=== PATIENT | male | born 1985 | race Caucasian/White ===

== ENCOUNTER 2016-08-26 20:18 | Inpatient (IN) | payer OTHER ==
[~2016-08-26] VITALS: Ht 188 cm; Wt 129.3 kg
[2016-08-26] MEDS: LACTATED RINGER'S 1000 ML INJ 1,000 ML IV SCH ×2 (02:51→20:44)
[~2016-08-26 20:18] MED LIST: LACTATED RINGER'S 1000 ML INJ 1,000 ML IV ONE; NORMOSOL R INJ 1,000 ML IV ONE; ONDANSETRON HCL 4 MG/2 ML VIAL IV PUSH ONE; PHENYLEPH/NS 1000 MCG/10 ML SYR IV ONE; PROPOFOL 200 MG/20 ML AMP IV ONE; ePHEDrine/NS 25 MG/5 ML SYR IV ONE
[2016-08-26] MEDS ORDERED: HYDROmorphone HCL PF 1 MG/ML VIAL ONE ×2 (20:26→20:35)
[2016-08-26] MEDS ORDERED: ONDANSETRON HCL 4 MG/2 ML VIAL ONE (20:34)
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
[2016-08-26] MEDS ORDERED: CHLORHEXIDINE GLUCONATE 2 % 1 PACK (2 CLOTHS) TOP PRN (20:45)
[2016-08-26] MEDS ORDERED: MISCELLANEOUS NURSING INFORMATION XX SCH (20:45)
[2016-08-26] MEDS ORDERED: NALOXONE HCL 0.4 MG/ML AMP IV PRN (20:45)
[2016-08-26] MEDS ORDERED: HYDROmorphone HCL PCA 6 MG/30 ML IV SCH (20:45)
[2016-08-26] MEDS ORDERED: diphenhydrAMINE HCL 50 MG/ML VIAL IV PRN (20:45)
[2016-08-26 20:54] VITALS: O2SAT 98
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
[2016-08-26] MEDS ORDERED: PANTOPRAZOLE SODIUM 40 MG VIAL IVP SCH (21:00)
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
[2016-08-26 21:03] LABS: I-STAT POTASSIUM 3.9 MMOL/L (3.5-4.9)
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
[2016-08-26 21:07] LABS: BASOPHIL # 0.1 TH/MM3 (0-0.2); BASOPHIL % 0.6 % (0.0-2.0); EOSINOPHIL # 0.8 TH/MM3 (0-0.4); EOSINOPHIL % 6.2 % (0.0-4.0); HEMATOCRIT 43.4 % (39.0-51.0); HEMO FLAGS DIFF FINAL; LYMPH % 37.6 % (9.0-44.0); LYMPHOCYTE # 4.8 TH/MM3 (1.0-4.8); MEAN CELL VOLUME 82.8 FL (80.0-100.0); MEAN CORPUSCULAR HEMOGLOBIN 28.4 PG (27.0-34.0); MEAN CORPUSCULAR HGB CONC 34.4 % (32.0-36.0); MONO % 8.3 % (0.0-8.0); NEUT % 47.3 % (16.0-70.0); PLATELET COUNT 251 TH/MM3 (150-450); RED BLOOD COUNT 5.25 MIL/MM3 (4.50-5.90); RED CELL DISTRIBUTION WIDTH 13.2 % (11.6-17.2); WHITE BLOOD COUNT 12.8 TH/MM3 (4.0-11.0)
[2016-08-26 21:13] VITALS: PULSE 83
[2016-08-26] MEDS ORDERED: IOHEXOL 350 MG/ML 10 ML VIAL (for RAD DIAG) IV ONE (21:17)
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
[2016-08-26 21:22] LABS: APTT (PATIENT) 20.3 SEC (24.3-30.1); PROTHROMBIN TIME - PATIENT 11.4 SEC (9.8-11.6)
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
[2016-08-26] MEDS ORDERED: MIDAZOLAM HCL 2 MG/2 ML VIAL ONE (21:51)
[2016-08-26] MEDS ORDERED: HYDROmorphone HCL PF 2 MG/ML VIAL ONE (21:56)
[2016-08-26] MEDS: PCA - TOTAL MG DILAUDID DELIVERED PER SHIFT OTHER SCH (22:00)
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
[2016-08-26] MEDS ORDERED: ceFAZolin INJ 1,000 MG VIAL IV ONE (22:17)
[2016-08-26] MEDS ORDERED: GENTAMICIN SULFATE 80 MG/2 ML VIAL IV ONE (22:22)
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
[2016-08-26] MEDS ORDERED: Post-op Orders (for Pharmacy) MISC XX ONE (23:30)
[2016-08-26] MEDS ORDERED: SODIUM CHLORIDE 0.9% FLUSH 5 ML FLUSH IVF PRN (23:30)
[2016-08-26] MEDS ORDERED: ACETAMINOPHEN/HYDROcodone 325 MG/10 MG TAB PO PRN (23:30)
[2016-08-26] MEDS ORDERED: HYDROmorphone HCL PF 1 MG/ML VIAL IV PUSH PRN (23:30)
--- NOTE | 2016-08-26 23:36 | PD.OP ---
cc: Yong Cuevas MD Operative Report Date of Surgery: Aug 26, 2016 Preoperative Diagnosis: Open left distal femur fracture, open left tibia shaft fracture, open left ankle laceration Postoperative Diagnosis: Procedure: Irrigation and debridement of open left distal femur fracture, irrigation debridement of open left tibial shaft fracture, closed reduction with manipulation left distal femur fracture, closed reduction with manipulation of left tibia shaft fracture, application wound VAC dressing Surgeon: Yong Cuevas Signal Worker(s): Robbin Blackwood PA-C The surgical procedure was assisted by my physician home based assistant. My P.A. presence was necessary throughout this case for the manipulation and positioning of the surgical extremity. My P.A. was assisting me throughout the duration of this procedure. The skill set of a physician home based assistant was medically necessary to complete this procedure. During the surgical case the surgical scheduler was working at the back table and the physician home based assistant was directly assisting me. Operation and Findings: This patient sustained an injury resulting in comminuted open fractures of [ left distal femur and left tibial shaft]. Patient was seen and evaluated preoperatively and found to have too much swelling and soft tissue injury to proceed with open reduction internal fixation. Risk and benefits of surgery were discussed in depth with patient and informed consent was confirmed. Surgical site was marked. Patient was brought to operating room and placed on the OR table. Patient was given IV sedation and GETA. Patient received IV antibiotics and timeout procedure was performed. Operative leg was prepped with alcohol followed by Hibiclens and draped in the usual sterile fashion. Procedure began with irrigation and debridement of the distal femur fracture. The traumatic laceration was opened proximally and distally. There was some visible gross contamination including grass. All foreign material was carefully removed and excised. Skin subcutaneous tissue fascia and bone were sharply debrided. Multiple bone fragments were excised. Bone was cleaned with curettes. Bone was now thoroughly irrigated with pulsatile lavage. At this point wound appeared to be very clean with no further visible gross contamination. Next attention was turned to the tibia. The traumatic laceration was extended proximally and distally. Subcutaneous tissue dissected with Bovie. Multiple bone fragments were excised. Skin subcutaneous tissue and fascia were sharply debrided. Curettes were used to debride bone. Pulsatile lavage was used to thoroughly irrigate soft tissue and bone. There was also a lateral laceration of the fibula. This was thoroughly debrided sharply with scalpel. Next attention was turned to external fixation. Two small incisions were made along the anterior femur, proximal tibia, and distal tibia. Soft tissue was dissected bluntly. Cannulas were placed down to the cortex of bone. Pin sites were predrilled. Synthes HERNANDEZ-coated pins were placed into the femur, proximal tibia, and distal tibia. Fluoroscopy was used to confirm appropriate pin placement. An external fixator construct was now created with clamps and bars. Next attention was turned to reduction of the tibial shaft.. Traction was applied. Fracture was manipulated. Good alignment of the fracture was obtained. Fluoroscopy was used to confirm appropriate alignment of fracture. The external fixator was now tightened to hold reduction. Next attention was turned to the distal femur. Traction was applied. The distal femur was grossly realigned. The extra fixator was now tightened to hold reduction. There was severe comminution of the articular surface and distal femur metaphysis. Next was turned to wound closure. The distal femur laceration was closed with 3 -0 PDS and 3-0 nylon. The laceration of the tibia was not closable. Patient will likely need a free tissue transfer to cover this wound. A wound VAC dressing was cut to fit the wound. VAC dressing was sealed appropriately. Sterile dressings were applied. Patient was awakened and transferred to recovery room in stable condition. The soft tissue was reevaluated. Patient did have swelling around the knee and calf but compartments were soft and compressible with no signs of compartment syndrome. Yong Cuevas MD Aug 26, 2016 23:36
[2016-08-27] VITALS (16 sets, daily range): BP systolic 91–123; BP diastolic 51–66; PULSE 97–130; RESP 16–23; TEMP 96–100.3; O2SAT 32–100
[2016-08-27] MEDS ORDERED: DO NOT ADM ANY ANTICOAGULANT DRUGS PRN
[2016-08-27] MEDS ORDERED: fentaNYL CITRATE 250 MCG/5 ML AMP ONE (00:09)
--- NOTE | 2016-08-27 00:11 | RADRPT ---
EXAM DATE/TIME: 08/26/2016 23:12 [facility] COMPARISON: No previous studies available for comparison. INDICATIONS : Ex-fix lt femur. MEDICAL HISTORY : None. SURGICAL HISTORY : None. ENCOUNTER: Subsequent ACUITY: 1 day PAIN SCORE: Non-responsive. LOCATION: Left Femur FINDINGS: Intraoperative frontal view of the distal left femur demonstrates an extensively comminuted fracture through the distal femoral metadiaphysis with intra-articular extension and distraction of the femora l condyles. CONCLUSION: Extensively comminuted fracture through the distal femoral metadiaphysis with intra- articular ex tension and regional air. Rosas Altamirano MD on August 27, 2016 at 0:08 Board Certified Radiologist. This report was verified electronically.
--- NOTE | 2016-08-27 00:14 | RADRPT ---
EXAM DATE/TIME: 08/26/2016 23:12 [facility] COMPARISON: No previous studies available for comparison. INDICATIONS : Ex-fix lt tib/fib. MEDICAL HISTORY : None. SURGICAL HISTORY : None. ENCOUNTER: Subsequent ACUITY: 1 day PAIN SCORE: Non-responsive. LOCATION: Left Tib/Fib FINDINGS: Single frontal view of the tibia and fibula demonstrates diaphyseal fractures through both bones. Ove rlying external fixator positioned over the distal tibia. Inferiorly displaced bony fragment off the tibial fracture. CONCLUSION: 1. Comminuted fracture through the distal tibia with a large, inferiorly displaced fracture fragment. 2. Mildly comminuted fracture through the distal fibula. Rosas Altamirano MD on August 27, 2016 at 0:10 Board Certified Radiologist. This report was verified electronically.
[2016-08-27] MEDS ORDERED: MORPHINE SULFATE 4 MG/ML INJ ONE (02:13)
[2016-08-27] MEDS: ONDANSETRON HCL 4 MG/2 ML VIAL IV PRN ×3 (03:28→20:17)
[2016-08-27] MEDS: CHLORHEXIDINE GLUCONATE 2 % 1 PACK (2 CLOTHS) TOP SCH (03:28)
[2016-08-27] MEDS: LACTATED RINGER'S 1000 ML INJ 1,000 ML IV SCH ×4 (03:28→20:44)
[2016-08-27] MEDS: ceFAZolin 2 GM PREMIX 50 ML IV SCH ×3 (05:17→21:39)
[2016-08-27 05:24] LABS: AUTOMATED NEUTROPHIL # 20.8 TH/MM3 (1.8-7.7); BASOPHIL % 0.1 % (0.0-2.0); EOSINOPHIL % 0.1 % (0.0-4.0); HEMATOCRIT 32.1 % (39.0-51.0); LYMPH % 5.4 % (9.0-44.0); LYMPHOCYTE # 1.3 TH/MM3 (1.0-4.8); MEAN CELL VOLUME 84.4 FL (80.0-100.0); MEAN CORPUSCULAR HGB CONC 33.1 % (32.0-36.0); MONO % 9.2 % (0.0-8.0); NEUT % 85.2 % (16.0-70.0); PLATELET COUNT 262 TH/MM3 (150-450); RED CELL DISTRIBUTION WIDTH 12.7 % (11.6-17.2); WHITE BLOOD COUNT 24.4 TH/MM3 (4.0-11.0)
[2016-08-27 05:25] LABS: HEMO FLAGS AUTO DIFF
[2016-08-27 05:50] LABS: BICARBONATE 23.6 MEQ/L (21.0-32.0); POTASSIUM 5.6 MEQ/L (3.5-5.1)
[2016-08-27] MEDS: GENTAMICIN 80 MG PREMIX 100 ML IV SCH ×3 (05:59→21:39)
[2016-08-27] MEDS: KETOROLAC TROMETHAMINE 30 MG/ML (IVP) VIAL IVP SCH ×3 (06:00→22:00)
[2016-08-27] MEDS ORDERED: LACTATED RINGER'S 1000 ML INJ 1,000 ML IV ONE (06:00)
[2016-08-27] MEDS: PCA - TOTAL MG DILAUDID DELIVERED PER SHIFT OTHER SCH ×3 (06:00→21:39)
[2016-08-27 06:03] LABS: CALCIUM-PROTEIN CORRECTED 7.8 MG/DL (8.5-10.1)
--- NOTE | 2016-08-27 07:27 | PD.ORT.PN ---
Subjective Subjective Remarks POD 1 s/p I&D with application of exfix and wound vac left femur and tibia -doing well. pain controlled. resting comfortably Objective Vitals Vital Signs Date Time Temp Pulse Resp B/P Pulse Ox O2 Delivery O2 Flow Rate FiO2 08/27/16 06:00 109 08/27/16 06:00 23 08/27/16 04:00 98.9 117 17 102/62 94 08/27/16 04:00 117 08/27/16 02:30 97 Nasal Cannula 2.00 08/27/16 02:30 118 08/27/16 02:30 98.6 125 23 116/66 96 08/27/16 02:20 112 14 102/52 98 Nasal Cannula 2 08/27/16 02:00 108 14 98/58 100 Nasal Cannula 2 08/27/16 01:45 120 12 98/55 97 Nasal Cannula 2 08/27/16 01:30 112 16 102/60 68 Nasal Cannula 2 08/27/16 01:15 108 14 98/58 100 Nasal Cannula 2 08/27/16 01:00 109 11 101/60 97 Nasal Cannula 2 08/27/16 00:45 100 14 110/62 97 Nasal Cannula 2 08/27/16 00:30 100 12 98/58 97 Nasal Cannula 2 08/27/16 00:15 99.1 110 16 111/56 100 Nasal Cannula 3 08/26/16 21:45 94 14 127/62 95 08/26/16 21:30 92 17 138/68 96 08/26/16 21:17 82 21 142/79 99 08/26/16 21:13 83 08/26/16 21:13 98.6 80 18 142/79 99 08/26/16 20:54 98 3.00 08/26/16 20:54 98 3.00 I/O 08/26/16 08/26/16 08/26/16 08/27/16 08/27/16 08/27/16 07:00 15:00 23:00 07:00 15:00 23:00 Intake Total 3007 ml Output Total 1250 ml Balance 1757 ml Intake IV Total 307 ml Other 2700 ml Output Urine Total 950 ml Drainage Total 300 ml Result Diagram: 08/27/16 0505 08/27/16 0505 Other Results Laboratory Tests Test 08/26/16 20:26 Prothrombin Time 11.4 SEC (9.8-11.6) Prothromb Time International 1.0 RATIO Ratio Imaging Last 24 hours Impressions Pelvis X-Ray 08/26/162023 Signed Impressions: Service Date/Time: , August 26, 2016 20:11 - CONCLUSION: The bony pelvic ring is grossly intact. Samm Mcwilliams MD Chest X-Ray 08/26/162023 Signed Impressions: Service Date/Time: , August 26, 2016 20:11 - CONCLUSION: The lungs are clear. Samm Mcwilliams MD Chest CT 08/26/162023 Signed Impressions: Service Date/Time: , August 26, 2016 20:53 - CONCLUSION: Negative trauma CT thorax. Samm Mcwilliams MD Abdomen/Pelvis CT 08/26/162023 Signed Impressions: Service Date/Time: , August 26, 2016 20:53 - CONCLUSION: Negative trauma CT abdomen/pelvis with contrast. Samm Mcwilliams MD Objective Remarks LLE: +exfix. pin sites clean. NVI. dressings clean. +vac. good seal. Assessment & Plan Assessment and Plan 1) Left Open Distal Femur Fx s/p I&D with exfix application - POD 1 2) Left Open Distal Tibial Shaft Fx - s/p I&D with exfix and wound vac application - POD 1 -regular diet -had discussion with patient regarding treatment. patient will require a free tissue flap to cover the defect over his tibia fracture. Unfortunately, we do not have the plastics service that is able to perform this procedure here at [facility]. He will need to be transferred to [facility] for care. his orthopedic injuries cannot be fixed until adequate skin coverage is achieved over the tibia. will plan for transfer to [facility] for Free tissue flap by Dr Toro and Ortho management by Dr Street. Plan for transfer this weekend. -maintain exfix and vac at all times -pin care BID -Robbin Eugene Aug 27, 2016 07:27
[2016-08-27 07:29] LABS: BANDS 15 % (0-6); NEUTROPHIL # MANUAL DIFF 20.5 TH/MM3 (1.8-7.7); POLYS (SEG NEUTROPHILS) 69 % (16-70); WBC DIFF SAMPLE 100
[2016-08-27 07:30] LABS: PLATELET ESTIMATE SMEAR NORMAL (NORMAL); PLATELET MORPHOLOGY NORMAL (NORMAL); SCAN/DIFF FINAL DIFF MANUAL
[2016-08-27] MEDS: DOCUSATE SODIUM 50 MG/SENNA 8.6 MG TAB PO SCH ×2 (08:16→21:00)
[2016-08-27] MEDS: SODIUM CHLORIDE 0.9% FLUSH 5 ML FLUSH IVF SCH ×2 (08:17→21:00)
[2016-08-27] MEDS: SODIUM CHLORIDE 0.9% FLUSH 10 ML FLUSH IV FLUSH PRN (08:17)
[2016-08-27 09:13] LABS: HEMATOCRIT 30.3 % (39.0-51.0); REVIEW FLAG FINAL
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
[2016-08-27] MEDS: MAGNESIUM HYDROXIDE SUSP 30 ML CUP PO SCH (21:00)
--- NOTE | 2016-08-27 21:19 | RADRPT ---
EXAM DATE/TIME: 08/27/2016 20:44 [facility] COMPARISON: CHEST SINGLE AP, August 26, 2016, 20:11. INDICATIONS : Halicat. Shortness of breath. MEDICAL HISTORY : None. SURGICAL HISTORY : None. ENCOUNTER: Initial ACUITY: 1 day PAIN SCORE: Non-responsive. LOCATION: Bilateral chest FINDINGS: A single view of the chest demonstrates the lungs to be symmetrically aerated without evidence of mas s, infiltrate or effusion. The cardiomediastinal contours are unremarkable. Osseous structures are intact. CONCLUSION: No acute disease. Ivan Cota MD FACR on August 27, 2016 at 21:17 Board Certified Radiologist. This report was verified electronically.
[2016-08-27] MEDS: ENOXAPARIN SODIUM 30 MG/0.3 ML SYRINGE SQ SCH (22:00)
[2016-08-28] VITALS (18 sets, daily range): BP systolic 84–129; BP diastolic 41–60; PULSE 92–141; RESP 12–21; TEMP 99.2–101; O2SAT 97–100
[2016-08-28] MEDS: LACTATED RINGER'S 1000 ML INJ 1,000 ML IV SCH ×6 (00:28→23:50)
[2016-08-28] MEDS: CHLORHEXIDINE GLUCONATE 2 % 1 PACK (2 CLOTHS) TOP SCH (02:24)
[2016-08-28 04:25] LABS: AUTOMATED NEUTROPHIL # 8.9 TH/MM3 (1.8-7.7); BASOPHIL % 0.4 % (0.0-2.0); EOSINOPHIL # 0.1 TH/MM3 (0-0.4); EOSINOPHIL % 0.6 % (0.0-4.0); LYMPH % 12.6 % (9.0-44.0); LYMPHOCYTE # 1.5 TH/MM3 (1.0-4.8); MEAN CELL VOLUME 83.5 FL (80.0-100.0); MEAN CORPUSCULAR HEMOGLOBIN 28.9 PG (27.0-34.0); MEAN CORPUSCULAR HGB CONC 34.6 % (32.0-36.0); MONO % 10.1 % (0.0-8.0); NEUT % 76.3 % (16.0-70.0); PLATELET COUNT 150 TH/MM3 (150-450); RED BLOOD COUNT 2.38 MIL/MM3 (4.50-5.90); RED CELL DISTRIBUTION WIDTH 12.7 % (11.6-17.2); WHITE BLOOD COUNT 11.6 TH/MM3 (4.0-11.0)
[2016-08-28 04:32] LABS: APTT (PATIENT) 27.3 SEC (24.3-30.1); INTERNATIONAL NORMALIZED RATIO 1.1 RATIO; PROTHROMBIN TIME - PATIENT 11.7 SEC (9.8-11.6)
[2016-08-28 04:33] LABS: HEMO FLAGS DIFF FINAL
[2016-08-28 04:37] LABS: HEMATOCRIT 19.8 % (39.0-51.0)
[2016-08-28 04:42] LABS: BICARBONATE 28.7 MEQ/L (21.0-32.0); CALCIUM-PROTEIN CORRECTED 8.1 MG/DL (8.5-10.1); POTASSIUM 4.7 MEQ/L (3.5-5.1); TOTAL BILIRUBIN ADULT 0.5 MG/DL (0.2-1.0)
[2016-08-28] MEDS: GENTAMICIN 80 MG PREMIX 100 ML IV SCH ×3 (04:43→22:16)
[2016-08-28] MEDS: ceFAZolin 2 GM PREMIX 50 ML IV SCH ×3 (04:43→22:16)
[2016-08-28 04:56] LABS: CKMB 15.6 NG/ML (0.5-3.6)
[2016-08-28] MEDS: KETOROLAC TROMETHAMINE 30 MG/ML (IVP) VIAL IVP SCH (05:05)
--- NOTE | 2016-08-28 05:23 | PD.CONS ---
HPI Service Critical Care Medicine Consult Requested By Trauma Service Reason for Consult Hypoxemic Respiratory Failure Primary Care Physician Unknown History of Present Illness 31 y/o man became obtunded and hypoxemic on floor. Responded after 2nd dose of Narcan and was fully alert. Mild hypoxemia persisted without tachypnea. CXR clear. Cause of obtundation clearly narcotic from which he completely recovered. Residual hypoxemia from microatelectasis, PE, or possibly fat emboli syndrome. Patient continues to be breathing comfortably but O2 requirements are increased and sats 70s off O2. The patient's response to the second dose of narcan was profound and certainly implicates narcotic as the cause. Renal function is acutely impaired (and I doubt this is a pulmonary embolus). We will try to avoid a chest CTA while the renal function is recovering. CXR is clear. Fat emboli syndrome is a possible cause of ongoing mild hypoxemia but this is a little early in the time course and the orthopedic procedure performed is not prone to this complication. However, his agitation and confusion is typical of fat emboli though no obvious stigmata in axillary folds. Will reduce narcotic dose, observe pulse ox saturations, and follow renal function. Needless to say, he may require a V/Q scan or receive full anticoagulation by default )if not prohibited by other injuries. I'll discuss with Trauma Service. Past Family Social History Allergies: Coded Allergies: No Known Allergies (Unverified , 08/26/16) Physical Exam Vital Signs Vital Signs Date Time Temp Pulse Resp B/P Pulse Ox O2 Delivery O2 Flow Rate FiO2 08/28/16 04:00 101 08/28/16 04:00 100.6 101 15 114/54 100 08/28/16 02:00 108 08/28/16 00:00 100.5 109 16 98/50 100 08/28/16 00:00 109 08/27/16 22:00 119 08/27/16 21:30 111 08/27/16 21:30 100.3 114 16 95/51 100 08/27/16 21:02 100 Nasal Cannula 4.00 08/27/16 20:00 100 Nasal Cannula 4.00 08/27/16 19:55 100 3.00 08/27/16 19:55 100 Nasal Cannula 3.00 08/27/16 19:55 98.3 118 111/64 100 08/27/16 19:50 125 123/54 79 7/7/17 19:41 130 32 08/27/16 16:01 97.5 105 20 117/54 93 08/27/16 15:00 96 21 08/27/16 12:17 14 08/27/16 11:32 96.0 107 20 104/56 92 08/27/16 10:00 111 08/27/16 08:39 98 Nasal Cannula 2.00 08/27/16 08:00 97 08/27/16 08:00 98.2 104 16 91/53 96 08/27/16 07:00 100 Nasal Cannula 2.00 08/27/16 06:00 109 08/27/16 06:00 23 Physical Exam Gen: WD man. Head: Normal Pupils equal round reactive to light extraocular movements intact sclerae nonicteric conjunctiva is pink Neck: Airway widely patent. Lungs: Clear, no wheezes or crackles. Heart: NL S1S2, RRR, No JVD Abdomen: Benign Extremities: External fixateur left leg. Neuro: Confused, delirious. Moves all toes and fingers. Laboratory Laboratory Tests Test 08/27/16 08/28/16 08:59 03:29 Hemoglobin 10.2 6.9 Hematocrit 30.3 19.8 White Blood Count 11.6 Red Blood Count 2.38 Mean Corpuscular Volume 83.5 Mean Corpuscular Hemoglobin 28.9 Mean Corpuscular Hemoglobin 34.6 Concent Red Cell Distribution Width 12.7 Platelet Count 150 Mean Platelet Volume 9.8 Neutrophils (%) (Auto) 76.3 Lymphocytes (%) (Auto) 12.6 Monocytes (%) (Auto) 10.1 Eosinophils (%) (Auto) 0.6 Basophils (%) (Auto) 0.4 Neutrophils # (Auto) 8.9 Lymphocytes # (Auto) 1.5 Monocytes # (Auto) 1.2 Eosinophils # (Auto) 0.1 Basophils # (Auto) 0.0 CBC Comment DIFF FINAL Differential Comment Prothrombin Time 11.7 Prothromb Time International 1.1 Ratio Activated Partial 27.3 Thromboplast Time Sodium Level 137 Potassium Level 4.7 Chloride Level 102 Carbon Dioxide Level 28.7 Anion Gap 6 Blood Urea Nitrogen 34 Creatinine 1.87 Estimat Glomerular Filtration 42 Rate Random Glucose 114 Calcium Level 7.2 Protein Corrected Calcium 8.1 Total Bilirubin 0.5 Aspartate Amino Transf 77 (AST/SGOT) Alanine Aminotransferase 29 (ALT/SGPT) Alkaline Phosphatase 45 Total Creatine Kinase 2679 Creatine Kinase MB 15.6 Creatine Kinase MB % 0.6 Troponin I 0.46 Total Protein 5.5 Albumin 2.7 Result Diagram: 08/28/1632808/28/16328 Assessment and Plan Assessment and Plan Assessment: 1. Hypoxemic respiratory failure. 2. S/P debridement open left femur fracture and external fixation femur, tibia. 3. Encephalopathy. Plan: 1. NC O2. 2. Maintenance iv. 3. Hold narcotics. 4. Serial CKs. 5. Protonix. 6. Lovenox 40 daily Overall impression: Episode of obtundation appears related to narcotic. Clear CXR with hypoxemia raises concerns for PE or fat emboli. Reluctant to perform CTA chest with renal impairment. Consider V/Q scan; will discuss with trauma service pros and cons of full anticoagulation. If fat emboli, CXR will take several more days to appear granular. He remains critically ill with severe hypoxemic respiratory failure. Critical care 44 mins Jeff Valencia MD Aug 28, 2016 05:23
[2016-08-28] MEDS ORDERED: fentaNYL DRIP 250 ML IV SCH (06:30)
[2016-08-28] MEDS ORDERED: PROPOFOL 1000 MG/100 ML INJ 100 ML IV SCH (06:30)
[2016-08-28] MEDS ORDERED: ETOMIDATE 40 MG/20 ML VIAL IV PUSH ONE (06:30)
[2016-08-28] MEDS ORDERED: ROCURONIUM INJ 100 MG/10 ML VIAL IV ONE (06:30)
--- NOTE | 2016-08-28 06:55 | PD.PROCEDR ---
Procedure Note Procedure DATE: 08/28/2016 PROCEDURE: Orotracheal intubation INDICATION: Acute hypoxemic respiratory failure DETAILS OF PROCEDURE The patient was placed in optimal position and preoxygenated with 100% FiO2 via bag valve mask. At the start oxygen saturation was 100%. The patient was administered 25 g fentanyl IV and 40 mg etomidate IV and 50 mg rocuronium IV. I entered the oropharynx with a size 4 GVL glidescope blade and obtained a grade 3 view of the airway. On single attempt a size 8.0 cuffed endotracheal tube was passed through the vocal cords. Correct tube location was confirmed with end tidal CO2 detector and by auscultating over bilateral lung hightower. The endotracheal tube was secured with adhesive tape at a depth of 24 cm at the lips. The patient was connected to the ventilator. The patient tolerated the procedure well without any apparent complications. Oxygen saturations were maintained greater than 95% all times. STAT chest x-ray pending at time of dictation. Cristino Mcmanus MD Aug 28, 2016 06:55
[2016-08-28] MEDS ORDERED: MIDAZOLAM 100 MG/ML INJ 100 ML IV SCH (07:00)
[2016-08-28] MEDS ORDERED: MIDAZOLAM HCL 5 MG/ML VIAL (1 ML) ONE (07:13)
--- NOTE | 2016-08-28 07:13 | RADRPT ---
EXAM DATE/TIME: 08/28/2016 07:02 [facility] COMPARISON: No previous studies available for comparison. INDICATIONS : E-T tube placement. MEDICAL HISTORY : None. SURGICAL HISTORY : Left leg orthopedic surgery ENCOUNTER: Subsequent ACUITY: 3 days PAIN SCORE: Non-responsive. LOCATION: Bilateral chest FINDINGS: A single view of the chest demonstrates the lungs to be symmetrically aerated without evidence of mas s, infiltrate or effusion. The endotracheal tube has been placed just above the level of the clavicle . The cardiomediastinal contours are unremarkable. Osseous structures are intact. CONCLUSION: Normal examination status post intubation. Raad Asencio MD on August 28, 2016 at 7:12 Board Certified Radiologist. This report was verified electronically.
[2016-08-28] MEDS ORDERED: TERBUTALINE INJ 1 MG/ML AMP SQ PRN (07:30)
[2016-08-28] MEDS ORDERED: PHENYLEPHRINE INJ 160 MG in DEXTROSE 5% IN WATE 500 ML INJ 484 ML IV SCH ×2 (07:30)
[2016-08-28] MEDS: CHLORHEXIDINE 0.12% (ORAL KIT) 15 ML CUP MT SCH ×2 (08:00→20:00)
[2016-08-28 08:03] LABS: BLOOD GAS BASE EXCESS 2.2 mmol/L (-2-2); BLOOD GAS CARBOXYHEMOGLOBIN 1.3 % (0-4); BLOOD GAS HCO3 27 mmol/L (22-26); BLOOD GAS METHEMOGLOBIN 1.3 % (0-2); BLOOD GAS O2 HGB SATURATION 98 % (90-100); BLOOD GAS OXYGEN CONTENT 10.3 Vol % (12.0-20.0); BLOOD GAS PCO2 47 mmHg (38-42); BLOOD GAS PO2 463 mmHg (61-120); BLOOD GAS TOTAL HGB 6.6 G/DL (12.0-16.0); CRITICAL VALUE YES; DRAW SITE RT RADIAL; FIO2 100 %; NUMBER OF ARTERIAL PUNCTURES 1; OXYGEN DEVICE VENTILATOR; STAT NO; TEMP CORR TO 98.6; ULNAR PULSE PRESENT; VENT SETTINGS AC/16/600/PEEP5
[2016-08-28] MEDS: SODIUM CHLORIDE 0.9% FLUSH 5 ML FLUSH IVF SCH ×2 (09:00→20:11)
[2016-08-28] MEDS: DOCUSATE SODIUM 50 MG/SENNA 8.6 MG TAB PO SCH ×2 (09:00→20:10)
--- NOTE | 2016-08-28 09:21 | PD.ORT.PN ---
Subjective Subjective Remarks Patient had Helicat on the floor last night Transferred to [facility]. Responded to Narcan. Patient now in nuclear medicine and not on floor Objective Vitals Vital Signs Date Time Temp Pulse Resp B/P Pulse Ox O2 Delivery O2 Flow Rate FiO2 08/28/16 07:38 100 08/28/16 06:45 100 100 08/28/16 06:00 108 08/28/16 04:00 101 08/28/16 04:00 100.6 101 15 114/54 100 08/28/16 02:00 108 08/28/16 00:00 100.5 109 16 98/50 100 08/28/16 00:00 109 08/27/16 22:00 119 08/27/16 21:30 111 08/27/16 21:30 100.3 114 16 95/51 100 08/27/16 21:02 100 Nasal Cannula 4.00 08/27/16 20:00 100 Nasal Cannula 4.00 08/27/16 19:55 100 3.00 08/27/16 19:55 100 Nasal Cannula 3.00 08/27/16 19:55 98.3 118 111/64 100 08/27/16 19:50 125 123/54 79 08/27/16 19:41 130 32 08/27/16 16:01 97.5 105 20 117/54 93 08/27/16 15:00 96 21 08/27/16 12:17 14 08/27/16 11:32 96.0 107 20 104/56 92 08/27/16 10:00 111 I/O 08/27/16 08/27/16 08/27/16 08/28/16 08/28/16 08/28/16 07:00 15:00 23:00 07:00 15:00 23:00 Intake Total 3007 ml 100 ml 933 ml Output Total 1250 ml 300 ml 650 ml Balance 1757 ml 100 ml -300 ml 283 ml Intake Oral 100 ml 50 ml IV Total 307 ml 883 ml Other 2700 ml Output Urine Total 950 ml 300 ml 600 ml Drainage Total 300 ml 50 ml # Voids 0 # Bowel Movements 0 Result Diagram: 08/28/16 0329 08/28/16 0329 Other Results Laboratory Tests Test 08/28/16 03:29 Prothrombin Time 11.7 SEC (9.8-11.6) Prothromb Time International 1.1 RATIO Ratio Imaging Last 24 hours Impressions Pelvis X-Ray 08/26/162023 Signed Impressions: Service Date/Time: , August 26, 2016 20:11 - CONCLUSION: The bony pelvic ring is grossly intact. Samm Mcwilliams MD Chest X-Ray 08/26/162023 Signed Impressions: Service Date/Time: , August 26, 2016 20:11 - CONCLUSION: The lungs are clear. Samm Mcwilliams MD Chest CT 08/26/162023 Signed Impressions: Service Date/Time: , August 26, 2016 20:53 - CONCLUSION: Negative trauma CT thorax. Samm Mcwilliams MD Abdomen/Pelvis CT 08/26/162023 Signed Impressions: Service Date/Time: , August 26, 2016 20:53 - CONCLUSION: Negative trauma CT abdomen/pelvis with contrast. Samm Mcwilliams MD Assessment & Plan Assessment and Plan 1) Left Open Distal Femur Fx s/p I&D with exfix application - POD 2 2) Left Open Distal Tibial Shaft Fx - s/p I&D with exfix and wound vac application - POD 2 PLAN: -regular diet -had discussion with patient regarding treatment. patient will require a free tissue flap to cover the defect over his tibia fracture. Unfortunately, we do not have the plastics service that is able to perform this procedure here at [place]. He will need to be transferred to [facility] for care. his orthopedic injuries cannot be fixed until adequate skin coverage is achieved over the tibia. will plan for transfer to [facility] for Free tissue flap by Dr Toro and Ortho management by Dr Street. Plan for transfer this weekend. -maintain exfix and vac at all times -pin care BID -NWB Transfer likely on hold until medically stabilized. Hemoglobin 6.9. Patient may need transfusion at some point. Chirag Lynn MD Aug 28, 2016 09:21
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
--- NOTE | 2016-08-28 14:34 | ECHRPT ---
Indication: Evaluate RV and EF. CONCLUSIONS The left ventricular systolic function is normal with an estimated ejection fraction in the range of 55-60%. Wall thickness is measured at the upper limits of normal. The right ventricular systoilc function is mildly decreased. The right ventriclar size is upper limits of normal. There is moderate tricuspid regurgitation. The estimated pulmonary arterial pressure is 47 mmHg. There is a small pericardial effusion present. BP: / HR: 96 Rhythm: Sinus MEASUREMENTS (Male / Female) Normal Values Technical Quality:Good 2D ECHO LV Diastolic Diameter PLAX 5.0 cm 4.2 - 5.9 / 3.9 - 5.3 cm LV Systolic Diameter PLAX 3.8 cm IVS Diastolic Thickness 1.3 cm 0.6 - 1.0 / 0.6 - 0.9 cm LVPW Diastolic Thickness 1.3 cm 0.6 - 1.0 / 0.6 - 0.9 cm LV Relative Wall Thickness 0.5 RV Internal Dim ED PLAX 3.2 cm LVOT Diameter 2.4 cm M-MODE Aortic Root Diameter MM 3.3 cm LA Systolic Diameter MM 3.0 cm LA Ao Ratio MM 0.9 AV Cusp Separation MM 1.9 cm DOPPLER AV Peak Velocity 125.0 cm/s AV Peak Gradient 6.3 mmHg LVOT Peak Velocity 113.0 cm/s LVOT Peak Gradient 5.1 mmHg AV Area Cont Eq pk 4.1 cm Mitral E Point Velocity 65.2 cm/s Mitral A Point Velocity 68.1 cm/s Mitral E to A Ratio 1.0 LV E' Lateral Velocity 19.5 cm/s Mitral E to LV E' Lateral Ratio 3.3 LV E' Septal Velocity 14.9 cm/s Mitral E to LV E' Septal Ratio 4.4 TR Peak Velocity 304.0 cm/s TR Peak Gradient 37.0 mmHg PV Peak Velocity 132.0 cm/s PV Peak Gradient 7.0 mmHg FINDINGS LEFT VENTRICLE The left ventricular systolic function is normal with an estimated ejection fraction in the range of 55-60%. Wall thickness is measured at the upper limits of normal. RIGHT VENTRICLE The right ventricular systoilc function is mildly decreased. The right ventriclar size is upper limits of normal. LEFT ATRIUM The left atrial size is normal. RIGHT ATRIUM The right atrial size is normal. ATRIAL SEPTUM Normal atrial septal thickness without atrial level shunting by limited color doppler interrogation. AORTA The aortic root and proximal ascending aorta are normal in size on limited imaging. MITRAL VALVE Structurally normal mitral valve. No mitral valve stenosis or regurgitation. AORTIC VALVE Trileaflet aortic valve. No aortic valve stenosis or regurgitation. TRICUSPID VALVE There is moderate tricuspid regurgitation. The estimated pulmonary arterial pressure is 47 mmHg. PULMONARY VALVE The pulmonary valve is not well visualized. VESSELS The inferior vena cava is normal in size. PERICARDIUM There is a small pericardial effusion present. Raymundo Ramos MD (Electronically Signed) Final Date:28 August 2016 14:33
[2016-08-28] MEDS ORDERED: ACETAMINOPHEN 1000 MG/100 ML VIAL IV ONE (16:00)
[2016-08-28 16:12] LABS: BICARBONATE 28.4 MEQ/L (21.0-32.0); MAGNESIUM 1.8 MG/DL (1.5-2.5); POTASSIUM 4.7 MEQ/L (3.5-5.1)
[2016-08-28 16:26] LABS: HEMATOCRIT 23.4 % (39.0-51.0); MEAN CELL VOLUME 84.7 FL (80.0-100.0); MEAN CORPUSCULAR HEMOGLOBIN 28.8 PG (27.0-34.0); PLATELET COUNT 119 TH/MM3 (150-450); RED BLOOD COUNT 2.76 MIL/MM3 (4.50-5.90); RED CELL DISTRIBUTION WIDTH 12.8 % (11.6-17.2); REVIEW FLAG FINAL; WHITE BLOOD COUNT 9.7 TH/MM3 (4.0-11.0)
[2016-08-28] MEDS ORDERED: SODIUM PHOSPHATE INJ 15 MMOL in SODIUM CHLORIDE 0.9% INJ 150 ML IV ONE (17:00)
[2016-08-28] MEDS: MAGNESIUM SULFATE 1 GM PREMIX 100 ML IV SCH ×2 (17:37→18:22)
[2016-08-28] MEDS ORDERED: ACETAMINOPHEN/HYDROcodone 325 MG/5 MG TAB PO PRN (18:30)
[2016-08-28] MEDS: MAGNESIUM HYDROXIDE SUSP 30 ML CUP PO SCH (20:10)
[2016-08-28] MEDS: ENOXAPARIN SODIUM 30 MG/0.3 ML SYRINGE SQ SCH (22:16)
[2016-08-28] MEDS: ACETAMINOPHEN 1000 MG/100 ML VIAL IV PRN (23:50)
[2016-08-29] VITALS (14 sets, daily range): BP systolic 105–134; BP diastolic 51–63; PULSE 88–115; RESP 12–20; TEMP 98.4–101.1; O2SAT 99–100
[2016-08-29] MEDS: CHLORHEXIDINE GLUCONATE 2 % 1 PACK (2 CLOTHS) TOP SCH (04:00)
[2016-08-29 04:20] LABS: AUTOMATED NEUTROPHIL # 6.8 TH/MM3 (1.8-7.7); BASOPHIL % 0.2 % (0.0-2.0); EOSINOPHIL # 0.3 TH/MM3 (0-0.4); EOSINOPHIL % 3.7 % (0.0-4.0); MEAN CELL VOLUME 83.5 FL (80.0-100.0); MEAN CORPUSCULAR HEMOGLOBIN 28.7 PG (27.0-34.0); MEAN CORPUSCULAR HGB CONC 34.4 % (32.0-36.0); MONO % 11.7 % (0.0-8.0); NEUT % 73.4 % (16.0-70.0); PLATELET COUNT 96 TH/MM3 (150-450); RED BLOOD COUNT 2.29 MIL/MM3 (4.50-5.90); RED CELL DISTRIBUTION WIDTH 12.7 % (11.6-17.2); WHITE BLOOD COUNT 9.3 TH/MM3 (4.0-11.0)
[2016-08-29 04:24] LABS: HEMO FLAGS AUTO DIFF
[2016-08-29 04:27] LABS: HEMATOCRIT 19.1 % (39.0-51.0)
[2016-08-29] MEDS: LACTATED RINGER'S 1000 ML INJ 1,000 ML IV SCH ×2 (04:44→12:44)
[2016-08-29] MEDS: ceFAZolin 2 GM PREMIX 50 ML IV SCH ×3 (04:52→21:22)
[2016-08-29 04:59] LABS: ANION GAP 9 MEQ/L (5-15); AST (GOT) 80 U/L (15-37); BICARBONATE 28.4 MEQ/L (21.0-32.0); BLOOD UREA NITROGEN 14 MG/DL (7-18); CHLORIDE 100 MEQ/L (98-107); GLOMERULAR FILTRATION RATE 83 ML/MIN (>89); MAGNESIUM 2.3 MG/DL (1.5-2.5); POTASSIUM 4.1 MEQ/L (3.5-5.1); SODIUM (NA) 137 MEQ/L (136-145)
[2016-08-29 05:09] LABS: ALT (GPT) 25 U/L (12-78)
[2016-08-29 05:23] LABS: SCAN/DIFF AUTO DIFF CONFIRMED
[2016-08-29 05:26] LABS: ALKALINE PHOSPHATASE 47 U/L (45-117); CREATINE KINASE 2255 U/L (39-308); TOTAL BILIRUBIN ADULT 0.5 MG/DL (0.2-1.0)
[2016-08-29 05:52] LABS: CKMB 4.8 NG/ML (0.5-3.6)
[2016-08-29] MEDS ORDERED: FUROSEMIDE 20 MG/2 ML VIAL IV PUSH ONE (08:00)
[2016-08-29] MEDS: CHLORHEXIDINE 0.12% (ORAL KIT) 15 ML CUP MT SCH (08:00)
--- NOTE | 2016-08-29 08:05 | HHI.CCPN ---
Subjective Remarks/Hospital Course 31 y/o man became obtunded and hypoxemic on floor. Responded after 2nd dose of Narcan and was fully alert. Mild hypoxemia persisted without tachypnea. CXR clear. Cause of obtundation clearly narcotic from which he completely recovered. Residual hypoxemia from microatelectasis, PE, or possibly fat emboli syndrome. Patient continues to be breathing comfortably but O2 requirements are increased and sats 70s off O2. The patient's response to the second dose of narcan was profound and certainly implicates narcotic as the cause. Renal function is acutely impaired (and I doubt this is a pulmonary embolus). We will try to avoid a chest CTA while the renal function is recovering. CXR is clear. Fat emboli syndrome is a possible cause of ongoing mild hypoxemia but this is a little early in the time course and the orthopedic procedure performed is not prone to this complication. However, his agitation and confusion is typical of fat emboli though no obvious stigmata in axillary folds. Will reduce narcotic dose, observe pulse ox saturations, and follow renal function. Needless to say, he may require a V/Q scan or receive full anticoagulation by default )if not prohibited by other injuries. I'll discuss with Trauma Service. Subjective 08/29: Negative VQ scan yesterday. Likely fat embolism currently on 3 L nasal cannula. Awake and oriented to person only. CT head negative for acute intracranial findings. Objective Vital Signs Date Time Temp Pulse Resp B/P Pulse Ox O2 Delivery O2 Flow Rate FiO2 08/29/16 06:00 101 08/29/16 04:00 100.1 17 105/51 100 08/28/16 20:14 Nasal Cannula 3.00 08/28/16 12:45 35 Intake and Output 08/28/16 08/28/16 08/29/16 08:00 16:00 00:00 Intake Total 933 ml 762 ml 810 ml Output Total 650 ml 100 ml 1150 ml Balance 283 ml 662 ml -340 ml Result Diagram: 08/29/16 0336 08/29/16 0336 Imaging Last 72 hours Impressions Lung Scan-VQ Nuclear Medicine 08/28/16 0000 Signed Impressions: Service Date/Time: Sunday, August 28, 2016 08:57 - CONCLUSION: Normal examination. Raad Asencio MD Chest X-Ray 7/8/17 0000 Signed Impressions: Service Date/Time: Sunday, August 28, 2016 07:02 - CONCLUSION: Normal examination status post intubation. Raad Asencio MD Head CT 08/27/16 Signed Impressions: Service Date/Time: Saturday, August 27, 2016 20:28 - CONCLUSION: Negative for acute process. Ivan Cota MD FACR Chest X-Ray 08/27/16 Signed Impressions: Service Date/Time: Saturday, August 27, 2016 20:44 - CONCLUSION: No acute disease. Ivan Cota MD FACR Pelvis X-Ray 08/26/162023 Signed Impressions: Service Date/Time: August 20:11 - CONCLUSION: The bony pelvic ring is grossly intact. Samm Mcwilliams MD Chest X-Ray 08/26/162023 Signed Impressions: Service Date/Time: August 20:11 - CONCLUSION: The lungs are clear. Samm Mcwilliams MD Chest CT 08/26/162023 Signed Impressions: Service Date/Time: August 20:53 - CONCLUSION: Negative trauma CT thorax. Samm Mcwilliams MD Abdomen/Pelvis CT 08/26/162023 Signed Impressions: Service Date/Time: August 20:53 - CONCLUSION: Negative trauma CT abdomen/pelvis with contrast. Samm Mcwilliams MD Objective Remarks GENERAL: 31-year-old male, physically fit early resting in bed in mild delirium SKIN: Warm and dry. HEAD: Atraumatic. Normocephalic. EYES: Pupils equal and round about 2 mm bilaterally and reactive. No scleral icterus. No injection or drainage. ENT: No nasal bleeding or discharge. Mucous membranes pink and moist. Oral facet erythema NECK: Trachea midline. No JVD. CARDIOVASCULAR: Tachycardia, RR. S1, S2 no S4 without murmur RESPIRATORY: Clear to auscultation. Breath sounds equal bilaterally. GASTROINTESTINAL: Abdomen soft, non-tender, nondistended. Normoactive bowel sounds MUSCULOSKELETAL: External fixature to left leg.extremities well perfused. Some oozing noted NEUROLOGICAL: Awake and alert and oriented to person only.. No obvious cranial nerve deficits. Motor grossly within normal limits. Five out of 5 muscle strength in the arms and legs. Normal speech. Gen: WD man. Head: Normal Pupils equal round reactive to light extraocular movements intact sclerae nonicteric conjunctiva is pink Neck: Airway widely patent. Lungs: Clear, no wheezes or crackles. Heart: NL S1S2, RRR, No JVD Abdomen: Benign Extremities: Neuro: Confused, delirious. Moves all toes and fingers. A/P Assessment and Plan Neuro/Psych: Acute delirium likely secondary to narcotics/FES CT head 08/27 revealed no acute intracranial findings Currently on hold from of as needed for fever/pain management. Limit narcotics CV: Moderate TR Small pericardial effusion Patient is currently normotensive not requiring antihypertensives and/or vasopressors On LR@125 cc an hour. Echocardiogram 08/28 revealed EF 55-60%. Mild decrease in right ventricle systolic function. Pulmonary arterial pressures 47 mmHg. Small pericardial effusion. Moderate TR. Resp: Acute hypoxemic respiratory failure likely secondary to FES Nasal cannula to maintain saturations greater than equal to 92% Incentive spirometry while awake Supportive care for likely fat emboli syndrome VQ scan 08/28 revealed no perfusion/ventilation defects. GI: Advance diet as tolerated Tatiana-Colace twice a day for bowel regimen : Grant catheter if indicated for accurate I's and O's in a critically ill patient Endo: Sliding-scale insulin if indicated to maintain euglycemia Renal: Accurate I's and O's Monitor urine output Creatinine currently within normal limits Heme: Acute post hemorrhagic blood loss anemia Thrombocytopenia Will transfuse 2 units PRBCs today. Hemoglobin currently 6.6. ID: Ancef 2 g IV every 8 hours 9 dosages per orthopedics. Completed gentamicin 80 g IV every 8 hours 3 dosages MSK: Postop day #2 I&D open left distal femur fracture with closed reduction manipulation/I&D open left tibial fracture with closed reduction manipulation by Dr. Munoz Currently in external fixator. Will need to transfer to [facility] for free tissue flap with Dr. Toro as plastic surgery not available at [facility] of the present time. FEN: Hypophosphatemia Replace electrolytes as clinically indicated Potassium phosphorus 15 normals IV 1 now. Access - Utilize peripheral IV. Central line if indicated Prophylaxis - GI - not indicated - DVT - Level II Assessment: 1. Hypoxemic respiratory failure. 2. S/P debridement open left femur fracture and external fixation femur, tibia. 3. Encephalopathy. Plan: 1. NC O2. 2. Maintenance iv. 3. Hold narcotics. 4. Serial CKs. 5. Protonix. 6. Lovenox 40 daily Overall impression: Episode of obtundation appears related to narcotic. Clear CXR with hypoxemia raises concerns for PE or fat emboli. Reluctant to perform CTA chest with renal impairment. Consider V/Q scan; will discuss with trauma service pros and cons of full anticoagulation. If fat emboli, CXR will take several more days to appear granular. He remains critically ill with severe hypoxemic respiratory failure. Critical care 44 mins Cristino Mcmanus MD Aug 29, 2016 08:05
[2016-08-29] MEDS: DOCUSATE SODIUM 50 MG/SENNA 8.6 MG TAB PO SCH ×2 (08:26→20:38)
[2016-08-29] MEDS: ACETAMINOPHEN 1000 MG/100 ML VIAL IV PRN ×2 (08:26→16:21)
[2016-08-29] MEDS ORDERED: POTASSIUM PHOSPHATE INJ 15 MMOL in SODIUM CHLORIDE 0.9% INJ 150 ML IV ONE (09:00)
[2016-08-29] MEDS: SODIUM CHLORIDE 0.9% FLUSH 5 ML FLUSH IVF SCH ×2 (09:00→20:39)
--- NOTE | 2016-08-29 09:09 | PD.ORT.PN ---
Subjective Subjective Remarks Family at bedside. Patient opens eyes in response to noise but falls asleep quickly. RN states no significant interval changes overnight. They are waiting to hear about a transfer to [facility] for further surgery. Objective Vitals Vital Signs Date Time Temp Pulse Resp B/P Pulse Ox O2 Delivery O2 Flow Rate FiO2 08/29/16 06:00 101 08/29/16 04:00 100.1 97 17 105/51 100 08/29/16 04:00 100 08/29/16 02:00 114 08/29/16 00:00 101.1 113 20 120/51 100 08/29/16 00:00 115 08/28/16 22:00 115 08/28/16 20:14 98 Nasal Cannula 3.00 08/28/16 20:00 100.1 112 18 113/52 97 08/28/16 20:00 110 08/28/16 19:00 97 Nasal Cannula 3.00 08/28/16 18:00 108 08/28/16 16:00 126 08/28/16 16:00 99.5 120 21 120/58 100 08/28/16 14:51 99 Nasal Cannula 6 08/28/16 14:00 141 08/28/16 14:00 97 Nasal Cannula 3.00 08/28/16 13:00 99 Nasal Cannula 6.00 08/28/16 12:45 99 35 08/28/16 12:00 114 08/28/16 12:00 101.0 128 12 129/60 100 08/28/16 12:00 35 08/28/16 10:00 92 08/28/16 09:57 100 35 I/O 08/28/16 08/28/16 08/28/16 08/29/16 08/29/16 08/29/16 07:00 15:00 23:00 07:00 15:00 23:00 Intake Total 933 ml 762 ml 810 ml 841 ml Output Total 650 ml 100 ml 1150 ml 350 ml Balance 283 ml 662 ml -340 ml 491 ml Intake Oral 50 ml 250 ml IV Total 883 ml 762 ml 810 ml 591 ml Output Urine Total 600 ml 1125 ml 300 ml Drainage Total 50 ml 100 ml 25 ml 50 ml # Voids 1 3 Result Diagram: 08/29/16 0336 08/29/16 0336 Imaging Last 24 hours Impressions Pelvis X-Ray 08/26/162023 Signed Impressions: Service Date/Time: , August 26, 2016 20:11 - CONCLUSION: The bony pelvic ring is grossly intact. Samm Mcwilliams MD Chest X-Ray 08/26/162023 Signed Impressions: Service Date/Time: , August 26, 2016 20:11 - CONCLUSION: The lungs are clear. Samm Mcwilliams MD Chest CT 08/26/162023 Signed Impressions: Service Date/Time: , August 26, 2016 20:53 - CONCLUSION: Negative trauma CT thorax. Samm Mcwilliams MD Abdomen/Pelvis CT 08/26/162023 Signed Impressions: Service Date/Time: , August 26, 2016 20:53 - CONCLUSION: Negative trauma CT abdomen/pelvis with contrast. Samm Mcwilliams MD Objective Remarks Laying in bed, Family at bedside, RN in room, NAD LLE Ex-Fix in place, pin site intact and dressed, VAC in place, +cap refill distal, radial pulse 1/4, good warmth distal extremity Assessment & Plan Assessment and Plan 1) Left Open Distal Femur Fx s/p I&D with exfix application - POD 3 2) Left Open Distal Tibial Shaft Fx - s/p I&D with exfix and wound vac application - POD 3 PLAN: -Per Dr. Lane - Pt will require a free tissue flap to cover the defect over his tibia fracture. Unfortunately, we do not have the plastics service that is able to perform this procedure here at [place]. He will need to be transferred to [facility] for care. his orthopedic injuries cannot be fixed until adequate skin coverage is achieved over the tibia. will plan for transfer to [facility] for Free tissue flap by Dr Toro and Ortho management by Dr Street. Plan for transfer this weekend. -maintain exfix and vac at all times -pin care BID -NWB Transfer likely on hold until medically stabilized. Hemoglobin 6.6 today. Treating w hospital nurse liaison. Tabby Clifford Aug 29, 2016 09:09
[2016-08-29] MEDS ORDERED: oxyCODONE/ACETAMINOPHEN 5 MG/325 MG TAB PO PRN (12:00)
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
[2016-08-29] MEDS ORDERED: [UNRECOGNIZED DRUG - CODE] IV (12:41)
[2016-08-29] MEDS ORDERED: [UNRECOGNIZED DRUG - CODE] IV FLUSH (12:41)
[2016-08-29] MEDS ORDERED: ONDA4INJ2 IV (12:41)
[2016-08-29] MEDS ORDERED: SENN1TAB PO (12:41)
[2016-08-29] MEDS ORDERED: ENOX30P SQ (12:41)
[2016-08-29] MEDS ORDERED: MAGN400S PO (12:41)
[2016-08-29] MEDS ORDERED: OXYC1TAB63 PO (12:41)
[2016-08-29] MEDS: oxyCODONE/ACETAMINOPHEN 5 MG/325 MG TAB PO PRN (14:04)
[2016-08-29 16:40] LABS: HEMATOCRIT 23.3 % (39.0-51.0)
[2016-08-29 16:43] LABS: REVIEW FLAG FINAL
[2016-08-29] MEDS: SODIUM CHLORIDE 0.9% FLUSH 10 ML FLUSH IV FLUSH PRN (20:38)
[2016-08-29] MEDS: MAGNESIUM HYDROXIDE SUSP 30 ML CUP PO SCH (20:38)
[2016-08-29] MEDS: ENOXAPARIN SODIUM 30 MG/0.3 ML SYRINGE SQ SCH (21:21)
[2016-08-30] VITALS: BP 114/59; PULSE 90; RESP 16; TEMP 98.8; O2SAT 100
[2016-08-30 02:00] VITALS: PULSE 98
[2016-08-30 04:00] VITALS: BP 114/53; PULSE 100; PULSE 94; RESP 18; TEMP 98.7; O2SAT 100
[2016-08-30 04:38] LABS: AUTOMATED NEUTROPHIL # 6.8 TH/MM3 (1.8-7.7); BASOPHIL % 0.1 % (0.0-2.0); EOSINOPHIL # 0.5 TH/MM3 (0-0.4); EOSINOPHIL % 5.3 % (0.0-4.0); HEMATOCRIT 21.3 % (39.0-51.0); HEMO FLAGS DIFF FINAL; LYMPH % 12.1 % (9.0-44.0); LYMPHOCYTE # 1.1 TH/MM3 (1.0-4.8); MEAN CELL VOLUME 82.5 FL (80.0-100.0); MEAN CORPUSCULAR HEMOGLOBIN 29.5 PG (27.0-34.0); MEAN CORPUSCULAR HGB CONC 35.8 % (32.0-36.0); NEUT % 73.5 % (16.0-70.0); PLATELET COUNT 121 TH/MM3 (150-450); RED BLOOD COUNT 2.58 MIL/MM3 (4.50-5.90); RED CELL DISTRIBUTION WIDTH 12.7 % (11.6-17.2); WHITE BLOOD COUNT 9.3 TH/MM3 (4.0-11.0)
[2016-08-30] MEDS: LACTATED RINGER'S 1000 ML INJ 1,000 ML IV SCH (04:44)
[2016-08-30 05:08] LABS: ANION GAP 6 MEQ/L (5-15); AST (GOT) 75 U/L (15-37); BICARBONATE 30.5 MEQ/L (21.0-32.0); BLOOD UREA NITROGEN 9 MG/DL (7-18); CHLORIDE 99 MEQ/L (98-107); GLOMERULAR FILTRATION RATE 101 ML/MIN (>89); POTASSIUM 4.1 MEQ/L (3.5-5.1); SODIUM (NA) 135 MEQ/L (136-145)
[2016-08-30 05:13] LABS: ALKALINE PHOSPHATASE 53 U/L (45-117); ALT (GPT) 27 U/L (12-78); TOTAL BILIRUBIN ADULT 0.7 MG/DL (0.2-1.0)
[2016-08-30 06:00] VITALS: PULSE 98
--- NOTE | 2016-08-30 07:14 | PD.ORT.PN ---
Subjective Subjective Remarks Stable no changes Objective Vitals Vital Signs Date Time Temp Pulse Resp B/P Pulse Ox O2 Delivery O2 Flow Rate FiO2 08/30/16 06:00 98 08/30/16 04:00 100 08/30/16 04:00 98.7 94 18 114/53 100 08/30/16 02:00 98 08/30/16 00:00 98.8 90 16 114/59 100 08/30/16 00:00 90 08/29/16 22:00 88 08/29/16 20:12 100 Nasal Cannula 3.00 08/29/16 20:00 100 08/29/16 20:00 98.4 92 15 134/63 100 08/29/16 19:00 100 Nasal Cannula 3.00 08/29/16 18:00 95 08/29/16 16:00 95 08/29/16 16:00 100.5 95 12 117/57 100 08/29/16 14:00 108 08/29/16 12:00 102 08/29/16 12:00 98.6 102 17 123/60 99 08/29/16 10:00 96 08/29/16 09:20 100 Nasal Cannula 3.00 08/29/16 08:00 100.7 106 20 112/53 99 08/29/16 08:00 106 I/O 08/29/16 08/29/16 08/29/16 08/30/16 08/30/16 08/30/16 07:00 15:00 23:00 07:00 15:00 23:00 Intake Total 841 ml 1264 ml 875 ml 1198 ml Output Total 350 ml 1750 ml 980 ml 725 ml Balance 491 ml -486 ml -105 ml 473 ml Intake Oral 250 ml 200 ml 650 ml 520 ml IV Total 591 ml 564 ml 225 ml 678 ml Packed Cells 500 ml Output Urine Total 300 ml 1700 ml 950 ml 700 ml Drainage Total 50 ml 50 ml 30 ml 25 ml # Voids 3 5 # Bowel Movements 0 0 Result Diagram: 08/30/1634008/30/16340 Imaging Last 24 hours Impressions Pelvis X-Ray 08/26/162023 Signed Impressions: Service Date/Time: August 20:11 - CONCLUSION: The bony pelvic ring is grossly intact. Samm Mcwilliams MD Chest X-Ray 08/26/162023 Signed Impressions: Service Date/Time: , August 26, 2016 20:11 - CONCLUSION: The lungs are clear. Samm Mcwilliams MD Chest CT 08/26/162023 Signed Impressions: Service Date/Time: , August 26, 2016 20:53 - CONCLUSION: Negative trauma CT thorax. Samm Mcwilliams MD Abdomen/Pelvis CT 08/26/162023 Signed Impressions: Service Date/Time: , August 26, 2016 20:53 - CONCLUSION: Negative trauma CT abdomen/pelvis with contrast. Samm Mcwilliams MD Objective Remarks Laying in bed, Family at bedside, RN in room, NAD LLE Ex-Fix in place, pin site intact and dressed, VAC in place, +cap refill distal, radial pulse 1/4, good warmth distal extremity Assessment & Plan Assessment and Plan 1) Left Open Distal Femur Fx s/p I&D with exfix application - POD 4 2) Left Open Distal Tibial Shaft Fx - s/p I&D with exfix and wound vac application - POD 4 PLAN: -Per Dr. Munoz - Pt will require a free tissue flap to cover the defect over his tibia fracture. Unfortunately, we do not have the plastics service that is able to perform this procedure here at [facility]. He will need to be transferred to [facility] for care. His orthopedic injuries cannot be fixed definitively until adequate skin coverage is achieved over the tibia. We will plan for transfer to [facility] for Free tissue flap by Dr Toro and Ortho management by Dr Street. Plan for transfer today -maintain exfix and vac at all times -pin care BID -Gerson Padilla Jr. Aug 30, 2016 07:14
[2016-08-30] MEDS: oxyCODONE/ACETAMINOPHEN 5 MG/325 MG TAB PO PRN ×2 (07:28→11:12)
[2016-08-30] MEDS: DOCUSATE SODIUM 50 MG/SENNA 8.6 MG TAB PO SCH (07:28)
[2016-08-30 08:00] VITALS: BP 109/53; PULSE 83; RESP 12; TEMP 98.3; O2SAT 98
[2016-08-30] MEDS: CHLORHEXIDINE 0.12% (ORAL KIT) 15 ML CUP MT SCH (08:00)
[2016-08-30] MEDS: SODIUM CHLORIDE 0.9% FLUSH 5 ML FLUSH IVF SCH (09:00)
[2016-08-30 10:00] VITALS: PULSE 82
--- NOTE | 2016-08-30 13:14 | EKG ---
Date Performed: 08/27/2016 Time Performed: 21:24:12 PTAGE: 31 years EKG: Sinus bradycardia Normal ECG except for rate NO PREVIOUS TRACING DOCTOR: Rich Tamez Interpretating Date/Time 08/30/2016 13:12:03
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
== END 2016-08-30 11:43 | disposition short-term general hospital (02) | DRG 956 ==
LOC: NEPI 20:18 → NEDA 21:06 → EDBD 21:06 → N03A 08-27 02:45 → N06B 08-27 11:20 → N03A 08-27 20:46
PROVIDERS: ADMIT Surgery; ATTEND Surgery
PROC: 0QSH35Z Reposition Left Tibia with External Fixation Device, Percutaneous Approach (ICD-10-PCS; 2016-08-26)
PROC: 0QSCXZZ Reposition Left Lower Femur, External Approach (ICD-10-PCS; 2016-08-26)
PROC: 0QSHXZZ Reposition Left Tibia, External Approach (ICD-10-PCS; 2016-08-26)
PROC: 0QSC35Z Reposition Left Lower Femur with External Fixation Device, Percutaneous Approach (ICD-10-PCS; principal; 2016-08-26 22:01)
PROC: 5A1935Z Respiratory Ventilation, Less than 24 Consecutive Hours (ICD-10-PCS; 2016-08-28)
PROC: 0BH17EZ Insertion of Endotracheal Airway into Trachea, Via Natural or Artificial Opening (ICD-10-PCS; 2016-08-28)
PROC: 30233N1 Transfusion of Nonautologous Red Blood Cells into Peripheral Vein, Percutaneous Approach (ICD-10-PCS; 2016-08-28)
DX: S72.402B Unspecified fracture of lower end of left femur, initial encounter for open fracture type I or II (principal); T79.1XXA Fat embolism (traumatic), initial encounter; J96.01 Acute respiratory failure with hypoxia; S82.202B Unspecified fracture of shaft of left tibia, initial encounter for open fracture type I or II; G93.40 Encephalopathy, unspecified; D62 Acute posthemorrhagic anemia; S82.402A Unspecified fracture of shaft of left fibula, initial encounter for closed fracture; V23.4XXA Motorcycle driver injured in collision with car, pick-up truck or van in traffic accident, initial encounter; Y92.488 Other paved roadways as the place of occurrence of the external cause; Y99.9 Unspecified external cause status; Y93.89 Activity, other specified; R10.2 Pelvic and perineal pain; M79.603 Pain in arm, unspecified; S70.312A Abrasion, left thigh, initial encounter; S50.312A Abrasion of left elbow, initial encounter; S30.810A Abrasion of lower back and pelvis, initial encounter; S50.311A Abrasion of right elbow, initial encounter; X58.XXXA Exposure to other specified factors, initial encounter
CPT/HCPCS: 31500; 36430; 36600; 70450; 71010; 71260; 72125; 72170; 73551; 73552; 73590; 74177; 75635; 76000; 78582; 80048; 80053; 82435; 82550; 82552; 82565; 82805; 82947; 82948; 83735; 84100; 84132; 84155; 84295; 84484; 84520; 85007; 85014; 85018; 85025; 85027; 85384; 85610; 85730; 86850; 86900; 86901; 86920; 93005; 93306; 94002; 94150; A9540; A9567; C1713; J0131; J0690; J1170; J1580; J1650; J1885; J1940; J2250; J2270; J2310; J2370; J2405; J3010; J3475; J7120; L0150; P9016; Q9967